=== PATIENT | female | born 1970 | race Caucasian/White ===

== ENCOUNTER → 2016-09-08 | Outpatient (CLI) | payer OTHER ==
[2016-09-08 14:17] VITALS: BP 127/90; PULSE 91; RESP 18; TEMP 97.4; BMI 52.1
--- NOTE | 2016-09-19 12:44 | P.PN ---
Progress Note - Text DATE OF SERVICE: 09/08/2016 CHIEF COMPLAINT: Bariatric assessment. HISTORY OF PRESENT ILLNESS: Denise Briggs is a 45-year-old female who has been in the program since March 2016. For the last almost 7 months she has been undergoing medically supervised weight loss. At her height of 5 feet 3-1/2 inches, her ideal body weight is 140 pounds. Today she comes in weighing 298 pounds. Her highest weight in the program was 305 pounds. She has been able to maintain at least a 7-pound weight loss. Body mass index has been reduced from 53.3 to 52.1. She has been chronicling her diet daily; in fact, she is using My [employer]itness [employer] at this time. She also been has been undergoing water aerobics. Secondary to discomfort along her back she had recent steroid injections, which have now caused unintentional weight gain. She also sees her pain provider regularly for weight checks and also medically supervised weight loss. She has undergone a complete assessment, particularly with consultants such as a service clerk. She has completed medical risk assessment. She is evaluating for additional bariatric procedures. Now she presents for further evaluation and management. PAST MEDICAL HISTORY: 1. Rheumatoid arthritis. 2. Fibromyalgia. 3. End-stage osteoarthritis of the right knee. 4. Herniated disc of C3-C4. 5. Herniated lumbar disc of L3-L4. 6. Yulisa's thyroiditis. 7. Morbid obesity. 8. Depression. 9. Chronic constipation. 10. Chronic pain syndrome. 11. Sleep apnea. 12. Bilateral carpal tunnel disease. 13. Bilateral hip bursitis. 14. Vertigo. 15. Anxiety. 16. Paradoxic oxygen desaturation. PAST SURGICAL HISTORY: 1. Adenoidectomy. 2. Back surgery. 3. Cholecystectomy. 4. Hysterectomy. 5. Left knee total joint replacement. 6. Right knee meniscus. 7. Lumbar surgery L5-L6. 8. Oophorectomy. 9. Plate and screws of the left shoulder. 10. Cervical fusion C5-C6. 11. She denies any prior upper endoscopies. 12. Multiple joint steroid injections. 13. Upper endoscopy. MEDICATIONS: 1. Desyrel. 2. Zanaflex. 3. Lamictal. 4. Klonopin. 5. Vitamin E. 6. Aldactone. 7. Potassium chloride. 8. Omeprazole. 9. Centrum. 10. Morphine sulfate. 11. Levothyroxine. 12. Vicodin 10. 13. Neurontin. 14. Lasix. 15. Voltaren. 16. Cymbalta. 17. Cinnamon. 18. Vitamin D. 19. FiberCon. 20. Vitamin C. 21. Nuvigil. 22. Albuterol sulfate. ALLERGIES: 1. LATEX. 2. FLEXERIL. 3. NICKEL. 4. ZOLOFT. SOCIAL HISTORY: Lifelong nontobacco user. FAMILY HISTORY: Denies any Crohn's disease or ulcerative colitis. She denies any lupus in her family. REVIEW OF SYSTEMS: CONSTITUTIONAL: Highest weight of 305 pounds. [place] body weight of 140 pounds. She comes in weighing 298 pounds. Maintained weight loss in the last 7 months of 7 pounds. Body mass index reduced from 53.3 to 52.1. MUSCULOSKELETAL: Reports recurrent neck pain requiring steroid injections. Also reports multiple hip and knee joint pain. RESPIRATORY: History of obstructive sleep apnea as well as paradoxical hypoxia. CARDIOVASCULAR: History of hypertension, controlled with at least 3 separate medications. NEURO: History of chronic pain syndrome and fibromyalgia. GASTROINTESTINAL: Has gastroesophageal reflux disease, including gastritis. HEENT: No troubles with hearing. Denies any dysphagia. No active troubles with vision. ENDOCRINE: History of Yulisa's thyroiditis. No reports of diabetes or blood sugar glucose intolerance. RESPIRATORY: She does have obstructive sleep apnea. PSYCH: History of depression including anxiety. HEMATOLOGIC: No reports of easy bruising or bleeding. PHYSICAL EXAM: VITAL SIGNS: 97.4, 91, 18, 127/90, 5 feet 3-1/2 inches, 298 pounds. Body mass index 52.1. GENERAL: Well-developed female in no acute distress. HEENT: No scleral icterus. Extraocular movements grossly intact. Moist buccal mucosa. NECK: Supple without lymphadenopathy. CHEST: Nonlabored respirations. Equal bilateral excursions. CARDIOVASCULAR: Tachycardic. ABDOMEN: Protuberant, soft, nontender. MUSCULOSKELETAL: No clubbing or cyanosis. NEURO: Cranial nerves II through XII grossly within normal limits. No focal or lateralizing signs. PSYCH: Alert and oriented to person, place and time. Appropriate affect. LABS: None pending at this time. ASSESSMENT: 1. Morbid obesity due to excess calories. 2. Body mass index reduced from 53.3 to 52.1. 3. Hypertension without known coronary cardiomyopathy. 4. Fibromyalgia. 5. Rheumatoid arthritis. 6. End-stage joint disease left knee. 7. Lumbar radiculopathy. 8. Degenerative disc disease of the lower back. 9. Yulisa's thyroiditis. 10. Anxiety. 11. Depression without recent suicidal ideation. 12. Vitamin D deficiency. 13. Chronic pain syndrome. 14. Obstructive sleep apnea and chronic oxygen desaturation. 15. Ambulation with assistive mobility device. 16. Neuropathy. 17. Chronic obstructive pulmonary disease. 18. Paradoxical hypoxia. 19. Diffuse osteoarthritis. 20. Dietary surveillance and counseling. 21. Asthma. 22. Tachycardia. PLAN: 1. She has monthly follow ups with her pain specialist and with medically supervised weight loss which also helps with her overall chronic pain syndrome. 2. In total she has been averaging a 1-pound weight loss each month and has maintained a weight loss of 7 pounds in the last 7 months. 3. She will continue chronicling her dietary history through [employer]. 4. I have asked her to use [employer] as a way to chronicle her exercise. She has been fairly active using water aerobics in the interim; however, doing a pedometer program may also help to elucidate the amount of calories burned. 5. Recommend at least a low-caloric 2-week high-protein diet, which will also address hepatomegaly. 6. As she does see a pain specialist, she has a version of pain contract. I would strongly recommend pain management through her pain specialist as well. 7. I have recommended that she follow up in approximately one month or sooner for evaluation and completion of her bariatric profile. 8. At this time she is looking into gastrectomy-type procedures, which she will finalize at her next visit.
== END | disposition home or self-care (01) ==
LOC: BARWHC3 13:45
PROVIDERS: ATTEND Surgery Plastic and Reconstructive Surgery
DX: E66.01 Morbid (severe) obesity due to excess calories (principal); Z68.43 Body mass index [BMI] 50.0-59.9, adult; I10 Essential (primary) hypertension; M79.7 Fibromyalgia; M06.9 Rheumatoid arthritis, unspecified; M54.16 Radiculopathy, lumbar region; M51.36 Other intervertebral disc degeneration, lumbar region; E06.3 Autoimmune thyroiditis; F41.9 Anxiety disorder, unspecified; F32.9 Major depressive disorder, single episode, unspecified; E55.9 Vitamin D deficiency, unspecified; G89.4 Chronic pain syndrome; G47.33 Obstructive sleep apnea (adult) (pediatric); G62.9 Polyneuropathy, unspecified; J44.9 Chronic obstructive pulmonary disease, unspecified; R09.02 Hypoxemia; Z70.3 Counseling related to combined concerns regarding sexual attitude, behavior and orientation; R00.0 Tachycardia, unspecified; J45.909 Unspecified asthma, uncomplicated; F17.200 Nicotine dependence, unspecified, uncomplicated; M17.11 Unilateral primary osteoarthritis, right knee; G56.03 Carpal tunnel syndrome, bilateral upper limbs; M70.72 Other bursitis of hip, left hip; M70.71 Other bursitis of hip, right hip; R42 Dizziness and giddiness; Z88.8 Allergy status to other drugs, medicaments and biological substances; Z91.040 Latex allergy status; Z91.048 Other nonmedicinal substance allergy status; Z79.899 Other long term (current) drug therapy
CPT/HCPCS: 99211

== ENCOUNTER → 2016-12-09 | Outpatient (CLI) | payer OTHER ==
[2016-12-09 16:06] VITALS: BP 131/85; PULSE 91; RESP 15; TEMP 99; BMI 52.9
--- NOTE | 2017-02-03 11:14 | P.PN ---
Progress Note - Text DATE OF SERVICE: 12/09/2016 CHIEF COMPLAINT: Bariatric assessment. HISTORY OF PRESENT ILLNESS: Denise Briggs is a 46-year-old female who has been undergoing the bariatric program since March 2016. At her height of 5 feet 3-1/2 inches, her ideal body weight is 145 pounds. Highest weight in the program is 305 pounds. Today she comes in weighing only 303 pounds. She is still 163 pounds overweight. Body mass is reduced from 53.3 down to 53. She has undergone pulmonary evaluation including cardiac risk assessment. Despite medical supervised weight loss, including exercising on a treadmill she has difficulty with weight loss. She has developed obstructive sleep apnea, hypertension and diffuse osteoarthritis. Now she presents for further evaluation for bariatric assessment. PAST MEDICAL HISTORY: 1. Rheumatoid arthritis. 2. Fibromyalgia. 3. End-stage osteoarthritis of the right knee. 4. Herniated disc of C3-C4. 5. Herniated lumbar disc of L3-L4. 6. Yulisa's thyroiditis. 7. Morbid obesity. 8. Depression. 9. Chronic constipation. 10. Chronic pain syndrome. 11. Sleep apnea. 12. Bilateral carpal tunnel disease. 13. Bilateral hip bursitis. 14. Vertigo. 15. Anxiety. 16. Paradoxic oxygen desaturation. PAST SURGICAL HISTORY: 1. Adenoidectomy. 2. Back surgery. 3. Cholecystectomy. 4. Hysterectomy. 5. Left knee total joint replacement. 6. Right knee meniscus. 7. Lumbar surgery L5-L6. 8. Oophorectomy. 9. Plate and screws of the left shoulder. 10. Cervical fusion C5-C6. 11. She denies any prior upper endoscopies. 12. Multiple joint steroid injections. 13. Upper endoscopy. MEDICATIONS: 1. Desyrel. 2. Zanaflex. 3. Lamictal. 4. Klonopin. 5. Vitamin E. 6. Aldactone. 7. Potassium chloride. 8. Omeprazole. 9. Centrum. 10. Morphine sulfate. 11. Levothyroxine. 12. Vicodin 10. 13. Neurontin. 14. Lasix. 15. Voltaren. 16. Cymbalta. 17. Cinnamon. 18. Vitamin D. 19. FiberCon. 20. Vitamin C. 21. Nuvigil. 22. Albuterol sulfate. ALLERGIES: 1. LATEX. 2. FLEXERIL. 3. NICKEL. 4. ZOLOFT. SOCIAL HISTORY: Lifelong nontobacco user. FAMILY HISTORY: Denies any Crohn's disease or ulcerative colitis. She denies any lupus in her family. REVIEW OF SYSTEMS: CONSTITUTIONAL: Maintained weight loss of only 2 pounds. Body mass index reduced and 53.3 down to 53. She is 163 pounds overweight. Highest weight of 305 pounds. [place] body weight of 140 pounds. MUSCULOSKELETAL: Reports recurrent neck pain requiring steroid injections. Also reports multiple hip and knee joint pain. RESPIRATORY: History of obstructive sleep apnea as well as paradoxical hypoxia. CARDIOVASCULAR: History of hypertension, controlled with at least 3 separate medications. NEURO: History of chronic pain syndrome and fibromyalgia. GASTROINTESTINAL: Has gastroesophageal reflux disease, including gastritis. HEENT: No troubles with hearing. Denies any dysphagia. No active troubles with vision. ENDOCRINE: History of Yulisa's thyroiditis. No reports of diabetes or blood sugar glucose intolerance. RESPIRATORY: She does have obstructive sleep apnea. PSYCH: History of depression including anxiety. HEMATOLOGIC: No reports of easy bruising or bleeding. PHYSICAL EXAM: VITAL SIGNS: 99.0, 91, 15, 131/85, 5 foot 3-1/2, 303 pounds. Body mass index 53.9. ABDOMEN: Soft, nontender, nondistended. CARDIOVASCULAR: Regular rate and regular rhythm. GENERAL: Well-developed female in no acute distress. HEENT: No scleral icterus. Extraocular movements grossly intact. Moist buccal mucosa. NECK: Supple without lymphadenopathy. CHEST: Nonlabored respirations. Equal bilateral excursions. MUSCULOSKELETAL: No clubbing or cyanosis. NEURO: Cranial nerves II through XII grossly within normal limits. No focal or lateralizing signs. PSYCH: Alert and oriented to person, place and time. Appropriate affect. LABS: No new labs at this time. ASSESSMENT: 1. Morbid obesity due to excess calories. 2. Body mass index reduced from 53.3 down to 53. 3. Hypertension without known coronary cardiomyopathy. 4. Fibromyalgia. 5. Rheumatoid arthritis. 6. End-stage joint disease left knee. 7. Lumbar radiculopathy. 8. Degenerative disc disease of the lower back. 9. Yulisa's thyroiditis. 10. Anxiety. 11. Depression without recent suicidal ideation. 12. Vitamin D deficiency. 13. Chronic pain syndrome. 14. Obstructive sleep apnea and chronic oxygen desaturation. 15. Ambulation with assistive mobility device. 16. Neuropathy. 17. Chronic obstructive pulmonary disease. 18. Paradoxical hypoxia. 19. Diffuse osteoarthritis. 20. Dietary surveillance and counseling. 21. Asthma. PLAN: 1. We have gone over bariatric procedures between a band, sleeve gastrectomy, Darlyn-en-Y gastric bypass and she has elected for evaluation for a sleeve gastrectomy. 2. She is still pending additional food and exercise journal for overall review. 3. As she is on multiple pain medications, recommend referral to a pain specialist. 4. Inpatient hospitalization for over 2 nights. 5. DVT prophylaxis. 6. Antibiotic prophylaxis. 7. I have gone 8-page bariatric consent form in detail. Risks, including bleeding, infection, leaks, strictures and need for further surgery was reviewed as well. 8. Recommend followup upon completion of her food and exercise journal as well. 9. She demonstrated understanding of a bariatric lifestyle and more importantly, benefits versus risks to proceeding with surgical intervention.
== END | disposition home or self-care (01) ==
LOC: BARWHC3 09:51
PROVIDERS: ATTEND Surgery Plastic and Reconstructive Surgery
DX: Z01.818 Encounter for other preprocedural examination (principal)
CPT/HCPCS: 99211

== ENCOUNTER → 2017-08-09 | Outpatient (CLI) | payer OTHER ==
--- NOTE | 2017-08-09 18:40 | XR ---
EXAMINATION TYPE: XR pelvis AP view DATE OF EXAM: 08/09/2017 COMPARISON: NONE HISTORY: Chronic pain TECHNIQUE: Single view FINDINGS: Pelvic ring is intact. Proximal femurs and hip joints appear normal. Sacroiliac joints appe ar normal. IMPRESSION: Normal pelvis
--- NOTE | 2017-08-09 18:41 | XR ---
EXAMINATION TYPE: XR foot complete bilateral DATE OF EXAM: 08/09/2017 COMPARISON: NONE HISTORY: Pain TECHNIQUE: 6 views FINDINGS: The bones of the left foot appear intact. There is an old ununited transverse fracture of the proximal shaft of the fifth metatarsal of the rig ht foot. I see no acute fracture nor dislocation. There are no erosions. Joint spaces are fairly norm al. 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 No acute fracture seen.
--- NOTE | 2017-08-09 18:44 | XR ---
EXAMINATION TYPE: XR wrist complete BILATERAL DATE OF EXAM: 08/09/2017 COMPARISON: NONE HISTORY: Pain TECHNIQUE: 8 views FINDINGS: Multiple film exam shows no fracture nor dislocation. There are no erosions. Joint spaces a re fairly normal. IMPRESSION: Negative bilateral wrist exam. No sign of inflammatory arthritis.
--- NOTE | 2017-08-09 18:45 | XR ---
EXAMINATION TYPE: XR spine complete AP and Lat DATE OF EXAM: 08/09/2017 COMPARISON: NONE HISTORY: Pain TECHNIQUE: 9 views FINDINGS: Cervical thoracic and lumbar vertebra have fairly normal alignment. There is no evidence of a compression fracture. There is no sign of paraspinal mass. Atlantoaxial facet joint is normal. I s ee no focal bone destruction. Sacroiliac joints appear normal. There is some anterior spurring at L5- S1. IMPRESSION: Negative complete spine exam.
--- NOTE | 2017-08-09 18:46 | XR ---
EXAMINATION TYPE: XR hand complete bilateral DATE OF EXAM: 08/09/2017 COMPARISON: NONE HISTORY: Pain TECHNIQUE: 6 views FINDINGS: Metacarpals are intact. I see no fracture nor dislocation. There are no erosions. There is slight narrowing of the IP joint spaces. There is no subluxation. IMPRESSION: Minimal nonspecific arthritic change. No specific sign of inflammatory arthritis.
== END | disposition home or self-care (01) ==
LOC: RADXRMAIN 16:09
PROVIDERS: ATTEND Internal Medicine Rheumatology
DX: M13.842 Other specified arthritis, left hand (principal); M13.841 Other specified arthritis, right hand; M54.5 Low back pain; R52 Pain, unspecified
CPT/HCPCS: 72082; 72170

== ENCOUNTER → 2018-01-04 | Outpatient (CLI) | payer OTHER ==
[2018-01-05 00:14] LABS: Rheumatoid Factor 7 IU/mL (0-15)
[2018-01-05 13:15] LABS: HLA B27 POSITIVE
== END | disposition home or self-care (01) ==
LOC: LABWHC1 14:42
PROVIDERS: ATTEND Pain Medicine Pain Medicine
DX: D89.89 Other specified disorders involving the immune mechanism, not elsewhere classified (principal); K71.9 Toxic liver disease, unspecified; N14.2 Nephropathy induced by unspecified drug, medicament or biological substance; T88.7XXD Unspecified adverse effect of drug or medicament, subsequent encounter; M35.9 Systemic involvement of connective tissue, unspecified
CPT/HCPCS: 36415; 80171; 82550; 82565; 84450; 84460; 84520; 85652; 86038; 86431; 86800; 86812

== ENCOUNTER 2022-04-28 06:48 | Day surgery (SDC) | payer BC, MEDICARE ==
[2022-04-26 14:50] VITALS: BMI 51.0
--- NOTE | 2022-04-28 02:08 | HP ---
HISTORY AND PHYSICAL DATE OF SURGERY: 04/28/2022 Denise Briggs is a 51-year-old patient seen with progressive right shoulder pain. We discussed options for treatment. She elected to proceed with right shoulder arthroscopy. Consent was obtained. PAST MEDICAL HISTORY: Hypertension, hypothyroidism. PAST SURGICAL HISTORY: Carpal tunnel surgery, cholecystectomy, hysterectomy, total knee arthroplasty, spine surgery. DAILY MEDICATIONS,: 1. Morphine. 2. Neurontin. 3. Synthroid. 4. Trazodone. 5. Wellbutrin. 6. Meloxicam. ALLERGIES: Flexeril, latex, nickel, Zoloft. SOCIAL HISTORY: She smokes cigarettes. PHYSICAL EVALUATION OF THE RIGHT SHOULDER: Flexion is 90 degrees, abduction is 90 degrees. External rotation is 10 degrees with pain and weakness. Tenderness along the anterior lateral acromion and rotator cuff insertion. Impingement is positive at 90 degrees. Drop-arm sign is positive. Distal neurovascular exam is intact. RADIOGRAPHS: Right shoulder revealed a type 2 acromion evidence for acromioclavicular joint osteoarthritis. MRI of right shoulder revealed a rotator cuff tendon tear, and partial biceps tendon tear. IMPRESSION: 1. Right shoulder impingement with rotator cuff tear. 2. Right shoulder acromioclavicular joint osteoarthritis. 3. Partial long head biceps tendon tear, right shoulder. PLAN: Right shoulder arthroscopy with subacromial decompression, arthroscopic rotator cuff repair with biceps tenotomy and debridement. MMODL / IJN: [id number] /
[~2022-04-28 06:48] MED LIST: ceFAZolin 3 GM in SODIUM CHLORIDE 0.9% 100 ML IVPB PRN
[2022-04-28] MEDS ORDERED: DEXAMETHASONE SOD PHOSPHATE 4 MG/ML 1 ML VIAL IV ONE (07:17)
[2022-04-28] MEDS ORDERED: LACTATED RINGERS 1,000 ML IV SCH (07:17)
[2022-04-28] MEDS ORDERED: ONDANSETRON 4 MG/2 ML VIAL IVP ONE (07:17)
[2022-04-28] MEDS ORDERED: SCOPOLAMINE 1 MG/72 HR PATCH TRANSDERM ONE (07:38)
[2022-04-28] MEDS ORDERED: LIDOCAINE 1% (10MG/ML) FOR IV START INTRADERMA ONE (07:39)
[2022-04-28] MEDS ORDERED: SUCCINYLCHOLINE CHLORIDE 200 MG/10 ML VIAL IV ONE (08:18)
[2022-04-28] MEDS ORDERED: MIDAZOLAM 2 MG/2 ML VIAL ONE (08:18)
[2022-04-28] MEDS ORDERED: ROCURONIUM 10 MG/ML (5 ML VIAL) IV ONE (08:18)
[2022-04-28] MEDS ORDERED: LIDOCAINE 2% INJ 20 MG/ML (2 ML VIAL) ONE (08:18)
[2022-04-28] MEDS ORDERED: PHENYLEPHRINE-0.9% NACL SYG 1,000 MCG/10 ML SYRINGE ONE (08:18)
[2022-04-28] MEDS ORDERED: fentaNYL (PF) 50 MCG/ML 2 ML AMP ONE (08:18)
[2022-04-28] MEDS ORDERED: GLYCOPYRROLATE 0.2 MG/ML 2 ML VIAL ONE (08:18)
[2022-04-28] MEDS ORDERED: PROPOFOL 10 MG/ML 20 ML VIAL IV ONE (08:18)
[2022-04-28] MEDS ORDERED: NEOSTIGMINE 1 MG/ML 10 ML VIAL ONE (08:18)
[2022-04-28] MEDS ORDERED: BUPIVACAINE (PF) 0.25% 30 ML VIAL SQ ONE ×2 (08:59→09:03)
--- NOTE | 2022-04-28 10:04 | P.OP ---
Date of Procedure: 04/28/22 Preoperative Diagnosis: Right shoulder impingement Postoperative Diagnosis: 1. Right shoulder rotator cuff tear 2. Right shoulder impingement 3. Right shoulder partial long head biceps tendon tear Procedure(s) Performed: 1. Right shoulder arthroscopic rotator cuff repair 2. Right shoulder arthroscopic subacromial decompression 3. Right shoulder arthroscopic biceps tenotomy Implants: 14.75 Arthrex swivel lock anchor Anesthesia: ALMITA, local Surgeon: Gurmeet Perry Top Collar Maker #1: Perez Adams Estimated Blood Loss (ml): 11 Pathology: none sent Condition: stable Disposition: PACU Indications for Procedure: 51-year-old patient seen with progressive right shoulder pain. After treatment options were discussed, she elected to proceed with arthroscopy. Operative Findings: see description of procedure Description of Procedure: The patient was then taken to the operative suite. The patient underwent a general anesthetic by the department of anesthesia. The patient was placed into a lateral position and secured. There was appropriate padding of the bony prominence. Right shoulder was then prepped and draped in normal sterile orthopedic fashion. We placed the extremity in 10 pounds of longitudinal traction. A posterior incision was now made for a posterior working portal site. The trocar and cannula were inserted into the glenohumeral joint. Arthroscopy was initiated. Spinal needle was now inserted anteriorly, to ascertain the anterior working portal site. An incision was now made in that area, a trocar was inserted followed by a probe. There was some hyperemia and partial tearing long head biceps tendon. There were grade 1 chondromalacia changes of the glenoid. The labrum appeared intact and stable. I performed arthroscopic biceps tenotomy. The superior labrum was again probed and was found to be stable. Instruments now removed from glenohumeral joint. Utilizing the posterior working portal site, the trocar and cannula were i nserted into the subacromial space. Arthroscopy initiated. I made an incision 2 fingerbreadths lateral to the acromion. I introduced my trocar followed by my ArthroCare ablator. I now began ablating thick subacromial bursal tissue, which exposed the undersurface of the anterior acromion. There was diminished subacromial space. There was a very prominent anterior acromion. A motorized bur was introduced and a subacromial decompression was performed. I also excised some osteophytes off the inferior aspect of the distal clavicle. The AC joint was visualized and noted to be moderately arthritic, I did not think enough toward a Elvin procedure. I turned my attention to the rotator cuff tendon. There was a 1.5 cm tear along the anterior aspect distal supraspinatus tendon. I debrided the margins getting down to stable tendon tissue. I abraded the footprint with a motorized bur. With the assistance of Myles CROSS we pasted 3 everted mattress sutures through good bites of rotator cuff tendon. I punched a hole in the the footprint area for insertion an anchor. All 6 limbs of suture were now passed through the eyelet of a 4.75 Arthrex swivel lock anchor. I placed in the eyelet into our pre-punched hole. I held it in position while Myles CROSS tensioned all 6 limbs of suture and deployed the anchor with good fixation noted All residual suture limbs were now clipped. We had good compression of the tendon along the entire footprint. Instruments now removed from the portal sites. All portal sites were approximated with nylon suture. I injected 20 mL quarter percent plain Marcaine into the subacromial space for postoperative pain management. Sterile dressings were applied followed by a shoulder sling. Perez CROSS assisted in this case. The patient was bob kened, transferred to a bed, and taken to recovery in stable condition.
[2022-04-28 10:10] VITALS: TEMP 96.9
[2022-04-28] MEDS: HYDROmorphone 0.5 MG/0.5 ML SYRINGE IVP PRN ×2 (10:44→11:38)
[2022-04-28 12:01] VITALS: BP 125/72; PULSE 92; RESP 14
== END 2022-04-28 12:15 | disposition home or self-care (01) ==
LOC: OR 06:48
PROVIDERS: ATTEND Orthopaedic Surgery
DX: M75.121 Complete rotator cuff tear or rupture of right shoulder, not specified as traumatic (principal); S46.111A Strain of muscle, fascia and tendon of long head of biceps, right arm, initial encounter; M75.41 Impingement syndrome of right shoulder; M19.011 Primary osteoarthritis, right shoulder; I10 Essential (primary) hypertension; E03.9 Hypothyroidism, unspecified; F17.210 Nicotine dependence, cigarettes, uncomplicated; G47.33 Obstructive sleep apnea (adult) (pediatric); K21.9 Gastro-esophageal reflux disease without esophagitis; J45.909 Unspecified asthma, uncomplicated; M50.30 Other cervical disc degeneration, unspecified cervical region; E07.9 Disorder of thyroid, unspecified; M79.7 Fibromyalgia; F32.9 Major depressive disorder, single episode, unspecified; M41.9 Scoliosis, unspecified; F41.9 Anxiety disorder, unspecified; Z90.49 Acquired absence of other specified parts of digestive tract; Z98.890 Other specified postprocedural states; Z88.8 Allergy status to other drugs, medicaments and biological substances; Z90.710 Acquired absence of both cervix and uterus; Z91.040 Latex allergy status; Z96.659 Presence of unspecified artificial knee joint; Z79.899 Other long term (current) drug therapy; M94.211 Chondromalacia, right shoulder; Z79.891 Long term (current) use of opiate analgesic; Z79.1 Long term (current) use of non-steroidal anti-inflammatories (NSAID); Z79.890 Hormone replacement therapy; X58.XXXA Exposure to other specified factors, initial encounter
CPT/HCPCS: 29827; 29828; 29826; C1713; J2250; J0330; J1100; J2710; J0690; J2405; J3010; J2370; J2704; J1170; J2001